=== PATIENT | female | born 1990 | race Hispanic/Latino ===

== ENCOUNTER 2020-07-09 13:52 | Emergency (ER) | payer OTHER ==
[~2020-07-09] VITALS: Ht 149.9 cm; Wt 56.7 kg
[2020-07-09] MEDS ORDERED: KETOROLAC TROMETHAMINE 60 MG/2 ML VIAL IM ONE (14:30)
[2020-07-09] MEDS ORDERED: KETOROLAC TROMETHAMINE 60 MG/2 ML VIAL ONE (15:17)
[2020-07-09] MEDS ORDERED: BACTRIM DS TAB1 EACH PO (15:56)
[2020-07-09] MEDS ORDERED: PREDNISONE20 MG PO (15:56)
[2020-07-09] MEDS ORDERED: CYCLOBENZAPRINE5 MG PO (15:56)
[2020-07-09 16:15] VITALS: BP 102/54
== END 2020-07-09 16:17 | disposition home or self-care (01) ==
LOC: FSED 14:10
DX: R30.0 Dysuria (principal); M54.5 Low back pain; R35.0 Frequency of micturition
CPT/HCPCS: 81025; 87086; 96372; 99283; J1885

== ENCOUNTER 2021-10-24 10:36 | Emergency (ER) | payer OTHER ==
[~2021-10-24] VITALS: Ht 149.9 cm; Wt 61.2 kg
[~2021-10-24 10:36] MED LIST: BACTRIM DS TAB1 EACH PO; CYCLOBENZAPRINE5 MG PO; PREDNISONE20 MG PO
[2021-10-24] MEDS ORDERED: LAMISIL AT12 G1 TOP (10:59)
== END 2021-10-24 11:10 | disposition home or self-care (01) ==
LOC: FSED 10:45
DX: B35.0 Tinea barbae and tinea capitis (principal)
CPT/HCPCS: 99282